=== PATIENT | male | born 1970 | race Two or more races ===

== ENCOUNTER 2017-03-10 19:25 | Emergency (ER) | payer OTHER, MEDICAID ==
[~2017-03-10] VITALS: Ht 180.3 cm; Wt 98.9 kg
[2017-03-10 19:50] VITALS: BP 174/111
--- NOTE | 2017-03-10 20:10 | Emergency Room Report ---
History of Present Illness General Chief Complaint: Skin Rash/Abscess Source: Patient Present Illness HPI 47-year-old male presents to the emergency department complaining of an itchy rash generalized on the body since yesterday. with patches of swelling. Patient reports history of rash occurrence when it's very hot outside. Patient denies allergies otherwise. She states yesterday he was outside painting including today which he believes may the rash worse. Denies fevers or chills. Denies lesions/rashes elsewhere on the body. Denies new medications or body washes or creams. Denies swelling of the lips, tongue , throat or airway. Denies wheezing, or shortness of breath. Denies recent travel, recent illness or ill contacts. denies blisters, oral lesions, or sloughing of the skin. Patient has not taken any medication for his symptoms. Allergies: Coded Allergies: No Known Allergies (Unverified , 03/10/17) Patient History Past Medical History: see triage record Past Surgical History: none Pertinent Family History: none Immunizations: UTD Reviewed Nursing Documentation: PMH: Agreed, PSxH: Agreed Nursing Documentation-PMH Past Medical History: No History, Except For Hx Hypertension: Yes Review of Systems All Other Systems: negative except mentioned in HPI Physical Exam Vital Signs Date Time Temp Pulse Resp B/P (MAP) Pulse Ox O2 Delivery O2 Flow Rate FiO2 03/10/17 19:43 98.2 73 18 174/111 99 Room Air Sp02 EP Interpretation: reviewed, normal General Appearance: no apparent distress, alert, GCS 15, non-toxic Head: normocephalic, atraumatic Eyes: bilateral eye normal inspection, bilateral eye PERRL ENT: hearing grossly normal, normal pharynx, no angioedema, normal voice, other - no swelling of the lips or tongue Neck: full range of motion, supple/symm/no masses Respiratory: lungs clear, normal breath sounds, no respiratory distress, no wheezing, speaking full sentences Cardiovascular #1: regular rate, rhythm, no edema, normal capillary refill Gastrointestinal: non tender, soft, no guarding, no rebound Musculoskeletal: back normal, gait/station normal, normal range of motion, non- tender Neurologic: alert, oriented x3, responsive, motor strength/tone normal, sensory intact, speech normal Psychiatric: judgement/insight normal, memory normal, mood/affect normal Skin: normal color, warm/dry, well hydrated, rash - erythematous raised plaques to the bilateral forearms, inner thighs, anterior chest, posterior neck , forehead, and anterior shins, consistent with urticaria. no blisters or vessicles. Lymphatic: no adenopathy Medical Decision Making PA Attchrissyation Dr. Redd is my supervising Physician whom patient management has been discussed with. Diagnostic Impression: Primary Impression: Rash and other nonspecific skin eruption Additional Impression: Heat rash ER Course 47-year-old male presents to the emergency department complaining of an itchy rash generalized on the body since yesterday. with patches of swelling. Patient reports history of rash occurrence when it's very hot outside. Patient denies allergies otherwise. He states yesterday he was outside painting, including today which he believes may the rash worse. Denies fevers or chills. Denies lesions/rashes elsewhere on the body. Denies new medications or body washes or creams. Denies swelling of the lips, tongue , throat or airway. Denies wheezing, or shortness of breath. Denies recent travel, recent illness or ill contacts. denies blisters, oral lesions, or sloughing of the skin. Patient has not taken any medication for his symptoms. Ddx considered but are not limited to cellulitis, scabies, shingles, varicella, dermatitis, urticaria, eczema, tinea Vital signs: are WNL, pt. is afebrile H&PE are most consistent with heat Dermatitis/urticaria. I do not suspect anaphylaxis or airway compromise at this time. --Erythematous raised plaques to the bilateral forearms, inner thighs, anterior chest, posterior neck, forehead, and anterior shins, consistent with urticaria. no blisters or vessicles. ORDERS: none required at this time, the diagnosis is clinical ED INTERVENTIONS: None required at this time. -Pt is driving home, and not able to take Benadryl at this time. d/w pt. that he will be D/C with Rx for Benadryl, and zyrtec. instructed to avoid prolonged exposure out in the sun and in the heat. Return to ED with worsening or new symptoms, otherwise follow up with PMD in 3-5 days. DISCHARGE: At this time pt. is stable for d/c to home. Will provide printed patient care instructions, and any necessary prescriptions. Care plan and follow up instructions have been discussed with the patient prior to discharge. Last Vital Signs Date Time Temp Pulse Resp B/P (MAP) Pulse Ox O2 Delivery O2 Flow Rate FiO2 03/10/17 19:50 98.2 18 174/111 99 Room Air 03/10/17 19:43 73 Disposition: HOME, SELF-CARE Condition: Stable Scripts Cetirizine Hcl* (ZYRTEC*) 10 Mg Tablet 10 MG ORAL DAILY for 30 Days, #30 TAB 0 Refills Prov: Cherelle Guevara 03/10/17 Diphenhydramine Hcl (BENADRYL ALLERGY) 25 Mg Tablet 25 MG PO Q6HR, #30 TAB Prov: Cherelle Guevara 03/10/17 Patient Instructions: Heat Rash, Rash Additional Instructions: Take medications as directed. Follow up with a Primary Care Provider in 3-5 days, even if your symptoms have resolved. --Please review list of primary care clinics, if you do not already have a primary care provider Return sooner to ED if new symptoms occur, or current symptoms become worse. Do not drink alcohol, drive, or operate heavy machinery while taking Benadryl as this may cause drowsiness. - Please note that this Emergency Department Report was dictated using [employer] software, occasionally this can lead to erroneous entry secondary to interpretation by the dictation equipment. Cherelle Guevara Mar 10, 2017 20:10
[2017-03-10] MEDS ORDERED: BENADRYL ALLERG25 M1 PO (20:12)
[2017-03-10] MEDS ORDERED: ZYRTEC10 MG ORAL (20:12)
[2017-03-10 20:17] VITALS: BP 174/111
== END 2017-03-10 20:15 | disposition home or self-care (01) ==
LOC: EMR 20:14
DX: L74.0 Miliaria rubra (principal); I10 Essential (primary) hypertension
CPT/HCPCS: 99284

== ENCOUNTER 2019-04-29 20:08 | Emergency (ER) | payer MEDICAID, OTHER ==
[~2019-04-29] VITALS: Ht 175.3 cm; Wt 97.5 kg
[~2019-04-29 20:08] MED LIST: BENADRYL ALLERG25 M1 PO; ZYRTEC10 MG ORAL
[2019-04-29 20:25] VITALS: BP 160/98
--- NOTE | 2019-04-29 20:25 | NUR ---
ED Nurse Note: PT AAOX4, VSS WITH NO ACUTE DISTRESS. Patient walked in to Er from home due to lower right back pain. PT IS COOPERATIVE AND STABLE.
--- NOTE | 2019-04-29 20:32 | Emergency Room Report ---
History of Present Illness General Chief Complaint: Lower Back Pain or Injury Source: Patient Present Illness HPI 49-year-old male with history of sciatic pain for several months already diagnosed by primary care physician here complaining of exacerbation of sciatic pain in the right side x2 days. Patient reports that he often lifts heavy objects at work. He has been given Robaxin and naproxen by primary care which reports has not been helping him the past couple days I usually do help him. Denies history of hypertension however his blood pressure is 164/102 today. Denies chest pain, blurry vision, headache, dizziness, shortness of breath. Denies any recent injury or fall. Denies urinary and bowel incontinence. Denies urinary frequency, pain radiation to the pubic area, denies testicular pain. Reports that the pain starts in the right lumbar and sacral area and radiates to right lower extremity worsening upon sitting and standing. Allergies: Coded Allergies: No Known Allergies (Unverified , 03/10/17) Patient History Past Medical History: see triage record Past Surgical History: unable to obtain Pertinent Family History: none Immunizations: UTD Reviewed Nursing Documentation: PMH: Agreed; PSxH: Agreed Nursing Documentation-PMH Past Medical History: No Stated History Hx Hypertension: Yes Review of Systems All Other Systems: negative except mentioned in HPI Physical Exam Vital Signs Date Time Temp Pulse Resp B/P (MAP) Pulse Ox O2 Delivery O2 Flow Rate FiO2 04/29/19 20:18 98.1 68 20 164/109 (127) 96 Room Air Sp02 EP Interpretation: reviewed, abnormal General Appearance: no apparent distress, alert, GCS 15, non-toxic Head: normocephalic, atraumatic Eyes: bilateral eye normal inspection, bilateral eye PERRL ENT: hearing grossly normal, normal pharynx, no angioedema, normal voice, TMs + canals normal, uvula midline Neck: full range of motion, supple, supple/symm/no masses Respiratory: chest non-tender, lungs clear, normal breath sounds, no rhonchi, no wheezing, speaking full sentences Cardiovascular #1: regular rate, rhythm, no edema, no murmur, normal capillary refill Cardiovascular #2: 2+ dorsalis pedis (R), 2+ dorsalis pedis (L) Gastrointestinal: normal bowel sounds, non tender, soft, non-distended, no guarding, no rebound Genitourinary: no CVA tenderness Musculoskeletal: back normal, digits/nails normal, gait/station normal, normal range of motion, non-tender, no calf tenderness, pelvis stable, other - Straight leg test positive on the right side Neurologic: alert, oriented x3, responsive, motor strength/tone normal, sensory intact, speech normal Psychiatric: judgement/insight normal, memory normal, mood/affect normal, no suicidal/homicidal ideation Skin: no rash Lymphatic: no adenopathy Medical Decision Making PA Attestation Diagnosis and treatment plans were reviewed and discussed with my supervising physician Dr. Vaughan Diagnostic Impression: Primary Impression: Sciatica, right side ER Course 49-year-old male with history of sciatic pain for several months already diagnosed by primary care physician here complaining of exacerbation of sciatic pain in the right side x2 days. Patient reports that he often lifts heavy objects at work. He has been given Robaxin and naproxen by primary care which reports has not been helping him the past couple days I usually do help him. Denies history of hypertension however his blood pressure is 164/102 today. Denies chest pain, blurry vision, headache, dizziness, shortness of breath. Denies any recent injury or fall. Denies urinary and bowel incontinence. Denies urinary frequency, pain radiation to the pubic area, denies testicular pain. Reports that the pain starts in the right lumbar and sacral area and radiates to right lower extremity worsening upon sitting and standing. Ddx considered but are not limited to: Lumbar spine sprain, strain, fracture, contusion, neuropathy, sciatica Vital signs: are WNL, pt. is afebrile H&PE are most consistent with: Right-sided sciatica chronic ORDERS: Ibuprofen 800, lidocaine patch ER intervention: Toradol DISCHARGE: At this time pt. is stable for d/c to home. Will provide printed patient care instructions, and any necessary prescriptions. Care plan and follow up instructions have been discussed with the patient prior to discharge. Continue taking Robaxin as well as crutches follow-up with primary care provider for physical therapy referral and further assessment. At this time no x-ray or no further imaging this is chronic pain. Avoid using naproxen as ibuprofen 800 has been substituted for naproxen Last Vital Signs Date Time Temp Pulse Resp B/P (MAP) Pulse Ox O2 Delivery O2 Flow Rate FiO2 10/26/19 20:18 98.1 68 20 164/109 (127) 96 Room Air Disposition: HOME, SELF-CARE Condition: Stable Scripts Lidocaine Patch* (Lidoderm Patch*) 1 Each Adh..patch 1 PATCH TOPIC DAILY, #7 PATCH 0 Refills Patch(es) may remain in place for up to 12 hours in any 24-hour period. Prov: Loan Edwards 04/29/19 Ibuprofen (Ibu) 800 Mg Tablet 800 MG PO TID, #30 TAB Prov: Loan Edwards 04/29/19 Patient Instructions: Sciatica With [facility] Additional Instructions: Take medication as directed, follow-up with your primary care provider for further assessment as well as physical therapy referral. If worsening symptoms return to emergency room. Loan Edwards Apr 29, 2019 20:32
[2019-04-29] MEDS ORDERED: IBU800 MG PO (20:33)
[2019-04-29] MEDS ORDERED: LIDODERM700 M1 TOPIC (20:33)
[2019-04-29] MEDS ORDERED: Ketorolac 30mg Inj IM ONE (20:45)
[2019-04-29 20:55] VITALS: BP 178/98
--- NOTE | 2019-04-29 20:55 | NUR ---
ER DISCHARGE NOTE: Patient is cleared to be discharged per ERMD, pt is aox4, on room air, with stable vital signs. pt was given dc and prescription instructions, pt was able to verbalize understanding, pt id band and iv site removed without complications. pt is able to ambulate with steady gait. pt took all belongings. PT STATES PAIN IS 1/10.
== END 2019-04-29 21:55 | disposition home or self-care (01) ==
LOC: EMR 20:57
DX: M54.41 Lumbago with sciatica, right side (principal); I10 Essential (primary) hypertension
CPT/HCPCS: 96372; 99283; J1885